=== PATIENT | female | born 1950 | race Caucasian/White ===

== ENCOUNTER → 2018-09-15 | Outpatient (CLI) | payer MEDICAID ==
--- NOTE | 2018-09-15 09:38 | Diagnostic Imaging Report ---
PROCEDURE: US Hepatic (Liver). TECHNIQUE: Multiple real-time grayscale images were obtained over the right upper quadrant in various projections. INDICATION: Elevated liver function test. There are no prior studies available for comparison. The liver does not appear to be enlarged measuring 15.8 cm in length. There is no focal mass involving the liver and the the bili tree is not dilated. The liver does seem more echogenic than usual and this appearance suggests fatty metamorphosis. There is considerable shadowing from the gallbladder fossa. I suspect that the gallbladder is filled with calculi. The gallbladder wall was not well-visualized but does not seem to be significantly thickened. There is no pericholecystic fluid to suggest acute cholecystitis. The common bile duct is not dilated measuring 4.8 mm. The pancreas and right kidney are unremarkable. The aorta and inferior vena cava were not well visualized. There is no mass or free fluid collection evident. IMPRESSION: 1. The liver does not appear to be enlarged and there is no focal mass involving the liver. 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 2. The gallbladder appears to be filled with calculi. There is no evidence for acute cholecystitis but if there is clinical concern regarding an acute abnormality of the gallbladder persists and further imaging is desired, nuclear medicine hepatobiliary scan would be recommended. Dictated by: Dictated on workstation # [id number]
== END ==
LOC: RAD 06:58
PROVIDERS: ATTEND Family Medicine
DX: R79.89 Other specified abnormal findings of blood chemistry (principal); R74.0 Nonspecific elevation of levels of transaminase and lactic acid dehydrogenase [LDH]
CPT/HCPCS: 76705